=== PATIENT | female | born 1945 | race Caucasian/White ===

== ENCOUNTER 2022-10-27 11:37 | Observation (INO) | payer MEDICARE ==
--- NOTE | 2022-10-27 11:50 | ERPHSYRPT ---
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 With time, the pain radiated into her left chest and left shoulder causing achiness. She has never had anything like this before. She went to [facility], [place] who sent this patient to our department for further evaluation and management. Patient's primary care provider is nurse practitioner Avi. Patient still has her gallbladder in [place]. 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 but denies any history of cardiac myocardial infarction Timing/Duration: today Activities at Onset: none Quality: aching Location: other (Left chest) Chest Pain Radiation: arm (Left shoulder) Severity of Pain-Max: mild (To moderate) Severity of Pain-Current: mild (To moderate) Modifying Factors: Improves With: nothing Associated Symptoms: nausea, vomiting, abdominal pain (Generalized), No shortness of breath Aspirin Treatment Today: no aspirin today Allergies/Adverse Reactions: codeine Allergy (Verified 10/27/22 11:45) Home Medications: Amlodipine Besylate 5 mg [Norvasc 5 mg] 5 mg PO BID 02/08/13 [History] hydroCHLOROthiazide [Hydrochlorothiazide] 25 mg PO DAILY 02/08/13 [History] Alendronate Sodium [Fosamax] 1 tab PO WEEKLY 10/27/22 [History] Atorvastatin Calcium 1 tab PO DAILY 10/27/22 [History] Cilostazol 100 mg [Pletal 100 MG] 1 tab PO DAILY 10/27/22 [History] Hx Tetanus, Diphtheria Vaccination/Date Given: Yes Hx Influenza Vaccination/Date Given: Yes (2011) Hx Pneumococcal Vaccination/Date Given: No Travel Risk - International Travel Have you traveled outside of the country in past 3 weeks: No - Coronavirus Screening Are you exhibiting any of the following symptoms?: No Close contact with a COVID-19 positive Pt in past 14-21 Days: No - Review of Systems Constitutional: No Symptoms Eyes: No Symptoms Ears, Nose, & Throat: No Symptoms Respiratory: No Symptoms Cardiac: Chest Pain (Achiness left chest) Abdominal/Gastrointestinal: Abdominal Pain (Generalized), Nausea, Vomiting, Appetite Changes Genitourinary Symptoms: No Symptoms Musculoskeletal: No Symptoms Skin: No Symptoms Neurological: No Symptoms Psychological: No Symptoms Endocrine: No Symptoms Hematologic/Lymphatic: No Symptoms Immunological/Allergic: No Symptoms All Other Systems: Reviewed and Negative - Past Medical History Pertinent Past Medical History: Yes Neurological History: No Pertinent History ENT History: No Pertinent History Cardiac History: No Pertinent History, Hypertension Respiratory History: No Pertinent History Endocrine Medical History: No Pertinent History Musculoskeletal History: No Pertinent History GI Medical History: No Pertinent History History: No Pertinent History Psycho-Social History: No Pertinent History Female Reproductive Disorders: No Pertinent History - Past Surgical History Past Surgical History: Yes Neuro Surgical History: No Pertinent History Cardiac: No Pertinent History Respiratory: No Pertinent History Gastrointestinal: No Pertinent History Genitourinary: Other Musculoskeletal: Orthopedic Surgery Female Surgical History: Tubal Ligation Other Surgical History: Rotator cuff surger and bladder tie up - Social History Smoking Status: Current every day smoker How long have you smoked: 30 Exposure to second hand smoke: No Drug Use: none Patient Lives Alone: No - Nursing Vital Signs Nursing Vital Signs: Initial Vital Signs Temperature 97.9 F 10/27/22 11:47 Pulse Rate 73 10/27/22 11:47 Respiratory Rate 18 10/27/22 11:47 Blood Pressure 129/80 10/27/22 11:47 O2 Sat by Pulse Oximetry 97 10/27/22 11:47 Pain Scale Pain Intensity 2 - Physical Exam General Appearance: no apparent distress, alert, anxiety Eye Exam: PERRL/EOMI, eyes nml inspection Ears, Nose, Throat Exam: normal ENT inspection, moist mucous membranes Neck Exam: normal inspection, non-tender, supple, full range of motion Respiratory Exam: normal breath sounds, chest tenderness (Left anterior chest achiness), lungs clear, airway intact, No respiratory distress Cardiovascular Exam: regular rate/rhythm, normal heart sounds, normal peripheral pulses Gastrointestinal/Abdomen Exam: soft, normal bowel sounds, tenderness (Ge neralized mild), guarding (Generalized mild to palpation), No rebound Pelvic Exam: not done Rectal Exam: not done Back Exam: normal inspection, normal range of motion, No CVA tenderness, No vertebral tenderness Extremity Exam: normal inspection, normal range of motion, pelvis stable Neurologic Exam: alert, oriented x 3, cooperative, jewelry dipper II-XII nml as tested, normal mood/affect Skin Exam: normal color, warm, dry Lymphatic Exam: No adenopathy SpO2 Interpretation: normal O2 Delivery: Room Air - Course Nursing assessment & vital signs reviewed: Yes EKG Interpreted by Me: RATE (69), Sinus Rhythm, NORMAL AXIS, NORMAL INTERVALS, Right Bundle Branch Block, NORMAL ST-T, Other (No acute ischemic changes on t nesha's twelve-lead EKG.) Ordered Tests: Active Orders 24 hr Category Date Time Status EKG-ER Only STAT Care 10/27/22 12:05 Active IV Insertion STAT Care 10/27/22 12:05 Active ABDOMEN AND PELVIS W/0 CONTRAS [CT] Stat Exams 10/27/22 12:06 Completed AMYLASE Stat Lab 10/27/22 12:05 Completed CBC W DIFF Stat Lab 10/27/22 12:05 Completed CMP Stat Lab 10/27/22 12:05 Completed LIPASE Stat Lab 10/27/22 12:05 Completed TROPONIN Q4H Lab 10/27/22 12:05 Completed TROPONIN Q4H Lab 10/27/22 16:15 Ordered TROPONIN Q4H Lab 10/27/22 20:15 Ordered UA W/RFX UR CULTURE Stat Lab 10/27/22 12:09 Completed Transfer Order Routine Transfer 10/27/22 Ordered Medication Summary Generic Name Dose Route Start Last Admin Trade Name Freq PRN Reason Stop Dose Admin Sodium Chloride 1,000 mls @ 150 mls/hr 10/27/22 14:00 Sodium Chloride 0.9% 1000 Ml IV 11/26/22 13:59 .[id number] ETHEL Discontinued Medications Generic Name Dose Route Start Last Admin Trade Name Freq PRN Reason Stop Dose Admin Hydromorphone HCl 0.5 mg 10/27/22 12:14 10/27/22 12:33 Hydromorphone 1 Mg/1ml Inj IV 10/27/22 12:15 0.5 mg STAT ONE Administration Hydromorphone HCl Confirm 10/27/22 12:32 Hydromorphone 1 Mg/1ml Inj Administered 10/27/22 12:33 Dose 1 mg .ROUTE .STK-MED ONE Sodium Chloride 1,000 mls @ 999 mls/hr 10/27/22 12:05 10/27/22 13:16 Sodium Chloride 0.9% 1000 Ml IV 10/27/22 13:05 Infused .Q1H1M STA Infusion Sodium Chloride Confirm 10/27/22 12:10 Sodium Chloride 0.9% 1000 Ml Administered 10/27/22 12:11 Dose 1,000 mls @ ud .ROUTE .STK-MED ONE Metronidazole 500 mg in 100 mls @ 200 mls/hr 10/27/22 13:17 10/27/22 14:14 Flagyl 500 Mg Ivpb IV 10/27/22 13:46 200 ml/hr STAT STA 200 mls/hr Administration Metronidazole Confirm 10/27/22 14:10 Flagyl 500 Mg Ivpb Administered 10/27/22 14:11 Dose 500 mg in 100 mls @ ud IV .STK-MED ONE Ondansetron HCl 4 mg 10/27/22 12:14 10/27/22 12:33 Ondansetron Hcl 4 Mg/2 Ml Vial IV 10/27/22 12:15 4 mg STAT ONE Administration Ondansetron HCl Confirm 10/27/22 12:32 Ondansetron Hcl 4 Mg/2 Ml Vial Administered 10/27/22 12:33 Dose 4 mg .ROUTE .STK-MED ONE Lab/Rad Data: Laboratory Result Diagrams 10/27/22 12:05 10/27/22 12:05 Laboratory Results 10/27/22 10/27/22 10/27/22 Range/Units 12:09 12:05 12:05 WBC (4.0-10.5) x10^3/uL RBC (4.1-5.4) x10^6/uL Hgb (12.0-16.0) g/dL Hct (35-47) % MCV (78-100) fL MCH (26-32) pg MCHC (32-36) g/dL RDW (11.5-14.0) % Plt Count (150-450) x10^3/uL MPV (7.5-11.0) fL Gran % (36.0-66.0) % Immature Gran % (Auto) (0.00-0.4) % Nucleat RBC Rel Count (0.00-0.1) % Eos # (Auto) (0-0.5) x10^3/uL Immature Gran # (Auto) (0.00-0.03) x10^3u/L Absolute Lymphs (auto) (1.0-4.6) x10^3/uL Absolute Monos (auto) (0.0-1.3) x10^3/uL Absolute Nucleated RBC (0.00-0.01) x10^3u/L Lymphocytes % (24.0-44.0) % Monocytes % (0.0-12.0) % Eosinophils % (0.00-5.0) % Basophils % (0.0-0.4) % Absolute Granulocytes (1.4-6.9) x10^3/uL Basophils # (0-0.4) x10^3/uL Sodium 137 (137-145) mmol/L Potassium 3.4 L (3.5-5.1) mmol/L Chloride 100 (98-107) mmol/L Carbon Dioxide 30 (22-30) mmol/L Anion Gap 10.4 (5-15) MEQ/L BUN 19 H (7-17) mg/dL Creatinine 0.74 (0.52-1.04) mg/dL Estimated GFR > 60.0 ML/MIN Glucose 128 H (74-106) mg/dL Calcium 9.0 (8.4-10.2) mg/dL Total Bilirubin 0.50 (0.2-1.3) mg/dL AST 30 (14-36) U/L ALT 15 (0-35) U/L Alkaline Phosphatase 62 (38-126) U/L Troponin I < 0.012 (0.000-0.034) ng/mL Serum Total Protein 7.5 (6.3-8.2) g/dL Albumin 4.1 (3.5-5.0) g/dL Amylase 2849 H (30-110) U/L Lipase 93393 H (23-300) U/L Urine Color Dark Yellow A (Yellow) Urine Appearance Cloudy A (Clear) Urine pH 5.5 (4.6-8.0) Ur Specific [place] >=1.030 A (1.005-1.030) Urine Protein 30 (Negative) Urine Glucose (UA) Negative (Negative) mg/dL Urine Ketones Trace A (Negative) Urine Blood Negative (Negative) Urine Nitrite Negative (Negative) Urine Bilirubin Negative (Negative) Urine Urobilinogen 1.0 A (0.2) mg/dL Ur Leukocyte Esterase Trace A (Negative) U Hyaline Cast (Auto) NONE SEEN (0-2) /LPF Urine Microscopic RBC 0-2 (0-5) /HPF Urine Microscopic WBC 0-2 (0-5) /HPF Ur Epithelial Cells Few (None Seen) /HPF Urine Bacteria Few A (None Seen) /HPF Urine Culture Reflexed NO (NO) 10/27/22 Range/Units 12:05 WBC 7.9 (4.0-10.5) x10^3/uL RBC 4.71 (4.1-5.4) x10^6/uL Hgb 14.1 (12.0-16.0) g/dL Hct 43.0 (35-47) % MCV 91.3 (78-100) fL MCH 29.9 (26-32) pg MCHC 32.8 (32-36) g/dL RDW 12.5 (11.5-14.0) % Plt Count 228 (150-450) x10^3/uL MPV 9.9 (7.5-11.0) fL Gran % 78.1 H (36.0-66.0) % Immature Gran % (Auto) 0.4 (0.00-0.4) % Nucleat RBC Rel Count 0.0 (0.00-0.1) % Eos # (Auto) 0 (0-0.5) x10^3/uL Immature Gran # (Auto) 0.03 (0.00-0.03) x10^3u/L Absolute Lymphs (auto) 1.33 (1.0-4.6) x10^3/uL Absolute Monos (auto) 0.36 (0.0-1.3) x10^3/uL Absolute Nucleated RBC 0.00 (0.00-0.01) x10^3u/L Lymphocytes % 16.8 L (24.0-44.0) % Monocytes % 4.6 (0.0-12.0) % Eosinophils % 0.0 (0.00-5.0) % Basophils % 0.1 (0.0-0.4) % Absolute Granulocytes 6.17 (1.4-6.9) x10^3/uL Basophils # 0.01 (0-0.4) x10^3/uL Sodium (137-145) mmol/L Potassium (3.5-5.1) mmol/L Chloride (98-107) mmol/L Carbon Dioxide (22-30) mmol/L Anion Gap (5-15) MEQ/L BUN (7-17) mg/dL Creatinine (0.52-1.04) mg/dL Estimated GFR ML/MIN Glucose (74-106) mg/dL Calcium (8.4-10.2) mg/dL Total Bilirubin (0.2-1.3) mg/dL AST (14-36) U/L ALT (0-35) U/L Alkaline Phosphatase (38-126) U/L Troponin I (0.000-0.034) ng/mL Serum Total Protein (6.3-8.2) g/dL Albumin (3.5-5.0) g/dL Amylase (30-110) U/L Lipase (23-300) U/L Urine Color (Yellow) Urine Appearance (Clear) Urine pH (4.6-8.0) Ur Specific [place] (1.005-1.030) Urine Protein (Negative) Urine Glucose (UA) (Negative) mg/dL Urine Ketones (Negative) Urine Blood (Negative) Urine Nitrite (Negative) Urine Bilirubin (Negative) Urine Urobilinogen (0.2) mg/dL Ur Leukocyte Esterase (Negative) U Hyaline Cast (Auto) (0-2) /LPF Urine Microscopic RBC (0-5) /HPF Urine Microscopic WBC (0-5) /HPF Ur Epithelial Cells (None Seen) /HPF Urine Bacteria (None Seen) /HPF Urine Culture Reflexed (NO) - Progress Progress: improved, re-examined Air Movement: good Progress Note: 10/27/22 13:18 CAT scan of the abdomen pelvis without contrast shows new duodenal and proximal jejunal enteritis with tiny left colic gutter free fluid. There is enlarging moderate sized hiatal hernia. There is no walled off fluid collection or evidence of free air. This patient's medical issues 1 of high complexity. The level of complexity in the work-up performed based on review of the patient's past medical history, review of the patient's medication list, review of the patient's drug allergy list, history of present illness, and physical findings on examination. The work-up in this patient includes a twelve-lead EKG, troponin level, CT scan of the abdomen pelvis, CBC, CMP, amylase and urinalysis. I reviewed the results of the work-up. The patient appears to have enteritis. We will provide her with a 500 mg IV dose of Flagyl. We are awaiting the remainder of the work-up results. 10/27/22 14:33 Patient has acute pancreatitis. I spoke with Dr. Pedraza who is covering for unassigned patients. He agrees that the patient should be placed in observation into the hospital we will provide the patient with clear liquid diet, IV hydration and repeat labs in the morning. We will also provide her with antiemetic and pain control. Blood Culture(s) Obtained: Yes Antibiotics given: Yes Discussed with : James Counseled pt/family regarding: lab results, diagnosis, need for follow-up, rad results Medical Desision Making - Independent Historian Additional History obtained from: Child - Discussion of managment Agreed on:: Treatment plan, decision to admit, place in obs - Diagnostic Testing Diagnostic test were ordered, analyzed, and reviewed by me: Yes Radiological Interpretation: Reviewed by me, Teleradiologist Report - Risk of complications The pt has a high risk of morbidity or mortality based on: Decision regarding hospitilization or escalation of hosp level of care - Departure Departure Disposition: Observation Clinical Impression: Acute pancreatitis Condition: Stable Critical Care Time: No Referrals: JIMMY MAJOR, REPROGRAPHICS TECHNICIAN [Primary Care Provider] - Follow up/PCP as directed
[2022-10-27] MEDS ORDERED: Sodium Chloride 0.9% 1000 ML 1,000 ML IV STA (12:05)
[2022-10-27] MEDS ORDERED: Sodium Chloride 0.9% 1000 ML 1,000 ML ONE ×2 (12:10→15:15)
[2022-10-27] MEDS ORDERED: Hydromorphone 1 mg/ml Injection IV ONE ×2 (12:14→15:15)
[2022-10-27] MEDS ORDERED: Zofran 4 MG/2 ML VIAL IV ONE (12:14)
[2022-10-27 12:19] LABS: Absolute Neutrophil Ct (ANC) 6.17 x10^3/uL (1.4-6.9); BASOPHIL % 0.1 % (0.0-0.4); Basophil (Absolute #) 0.01 x10^3/uL (0-0.4); Eosinophil (Absolute #) 0 x10^3/uL (0-0.5); Hemoglobin 14.1 g/dL (12.0-16.0); IMMATURE GRAN # 0.03 x10^3u/L (0.00-0.03); IMMATURE GRAN % 0.4 % (0.00-0.4); Lymphocyte (Absolute #) 1.33 x10^3/uL (1.0-4.6); Lymphocytes % 16.8 % (24.0-44.0); Mean Cell Volume 91.3 fL (78-100); Mean Corpuscular Hemoglobin 29.9 pg (26-32); Mean Corpuscular Hgb Concent. 32.8 g/dL (32-36); Mean Platelet Volume 9.9 fL (7.5-11.0); Monocyte (Absolute #) 0.36 x10^3/uL (0.0-1.3); Monocytes % 4.6 % (0.0-12.0); Neutrophil % 78.1 % (36.0-66.0); Platelet Count 228 x10^3/uL (150-450); Red Blood Count 4.71 x10^6/uL (4.1-5.4); Red Cell Distribution Width 12.5 % (11.5-14.0); White Blood Count 7.9 x10^3/uL (4.0-10.5)
[2022-10-27 12:30] LABS: Appearance Cloudy (Clear); Bilirubin Negative (Negative); Blood Negative (Negative); Glucose, Urine Negative (Negative); Ketones Trace (Negative); Leukocyte Esterase Trace (Negative); Nitrite Negative (Negative); Ph 5.5 (4.6-8.0); Protein,Urine Dip 30 (Negative); Specific Gravity >=1.030 (1.005-1.030)
[2022-10-27] MEDS ORDERED: Zofran 4 MG/2 ML VIAL ONE (12:32)
[2022-10-27] MEDS ORDERED: Hydromorphone 1 mg/ml Injection ONE ×2 (12:32→15:15)
[2022-10-27 12:44] LABS: ALBUMIN 4.1 g/dL (3.5-5.0); ALKALINE PHOSPHATASE 62 U/L (38-126); ANION GAP 10.4 MEQ/L (5-15); BLOOD UREA NITROGEN 19 mg/dL (7-17); CHLORIDE 100 mmol/L (98-107); Carbon Dioxide 30 mmol/L (22-30); Creatinine 1 0.74 mg/dL (0.52-1.04); EST GLOMERULAR FILTRATION RATE > 60.0 ML/MIN; Glucose 128 mg/dL (74-106); Potassium 3.4 mmol/L (3.5-5.1); SGOT/AST 30 U/L (14-36); SGPT/ALT 15 U/L (0-35); SODIUM 137 mmol/L (137-145); Total Protein 7.5 g/dL (6.3-8.2)
--- NOTE | 2022-10-27 13:06 | XRAY ---
Indication: Abdomen pain. Nausea and vomiting. Multiple contiguous axial images obtained through the abdomen and pelvis without contrast. Comparison: December 21, 2017 Lung bases again hyperinflated with right basilar subsegmental atelectasis/scarring. No infiltrate or effusion. Heart not enlarged. Enlarging moderate size hiatal hernia. Noncontrasted stomach and bowel loops appear nonobstructed. Entire duodenum and proximal jejunum now demonstrates circumferential wall thickening with minimal stranding favoring enteritis. Tiny fluid left colic gutter presumed reactive. No walled off fluid collection or free air. Appendix not seen. Incidental small left renal cyst and tiny hepatic/splenic calcified granulomas. Remaining liver, gallbladder, pancreas, spleen, adrenal glands, kidneys, ureters, bladder, and uterus are unremarkable for noncontrast exam. Pelvic floor demonstrates new pessary ring. Worsening mild/moderate scattered aortoiliac calcifications with new 2.4 x 2.1 cm distal AAA. Osseous structures intact again with osteopenia, mild/moderate degenerative changes throughout the spine, and mild dextroscoliosis. Impression: 1. New duodenal and proximal jejunal enteritis with tiny left colic gutter free fluid. 2. Enlarging moderate-sized hiatal hernia. 3. 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 4. Again chronic findings including left renal cyst, chronic bony findings, and old granulomatous disease.
[2022-10-27 13:11] LABS: Bacteria Few /HPF (None Seen); Epithelial Cells Few /HPF (None Seen); Hyaline Casts NONE SEEN /LPF (0-2); RBC 0-2 /HPF (0-5); WBC 0-2 /HPF (0-5)
[2022-10-27 13:12] LABS: ADD URINE CULTURE? NO (NO)
[2022-10-27] MEDS ORDERED: FLAGYL 500 MG IVPB 500 MG/100 ML BAG IV STA (13:17)
[2022-10-27 13:39] LABS: AMYLASE 2849 U/L (30-110)
[2022-10-27 13:48] LABS: LIPASE 19909 U/L (23-300)
[2022-10-27] MEDS ORDERED: Sodium Chloride 0.9% 1000 ML 1,000 ML IV SCH (14:00)
[2022-10-27] MEDS ORDERED: FLAGYL 500 MG IVPB 500 MG/100 ML BAG IV ONE (14:10)
[2022-10-27] MEDS ORDERED: Hydromorphone 1 mg/ml Injection IV PRN (15:54)
[2022-10-27] MEDS ORDERED: Zofran 4 MG/2 ML VIAL IV PRN (15:54)
[2022-10-27] MEDS ORDERED: TYLENOL 325 MG PO PRN (15:54)
[2022-10-27] MEDS ORDERED: HYDROMORPHONE 30 MG/30 ML-NS PCA IV PRN (16:54)
[2022-10-27] MEDS: FLAGYL 500 MG IVPB 500 MG/100 ML BAG IV SCH ×2 (18:02→23:48)
[2022-10-27] MEDS: hydroDIURIL 25 MG PO SCH (18:02)
[2022-10-27] MEDS: Pletal 100 MG PO SCH (18:03)
[2022-10-27] MEDS: ZOCOR 20MG PO SCH (18:03)
[2022-10-27] MEDS: Klor Con PO SCH (18:03)
[2022-10-27] MEDS: NORVASC 5 MG PO SCH (22:13)
[2022-10-28] MEDS: Sodium Chloride 0.9% 1000 ML 1,000 ML IV SCH (00:47)
[2022-10-28 04:46] LABS: Absolute Neutrophil Ct (ANC) 7.07 x10^3/uL (1.4-6.9); BASOPHIL % 0.2 % (0.0-0.4); Basophil (Absolute #) 0.02 x10^3/uL (0-0.4); Eosinophil % 0.2 % (0.00-5.0); Eosinophil (Absolute #) 0.02 x10^3/uL (0-0.5); Hematocrit 37.7 % (35-47); Hemoglobin 12.3 g/dL (12.0-16.0); IMMATURE GRAN # 0.03 x10^3u/L (0.00-0.03); IMMATURE GRAN % 0.3 % (0.00-0.4); Lymphocyte (Absolute #) 1.76 x10^3/uL (1.0-4.6); Lymphocytes % 18.5 % (24.0-44.0); Mean Corpuscular Hgb Concent. 32.6 g/dL (32-36); Mean Platelet Volume 9.3 fL (7.5-11.0); Monocyte (Absolute #) 0.61 x10^3/uL (0.0-1.3); Monocytes % 6.4 % (0.0-12.0); Neutrophil % 74.4 % (36.0-66.0); Platelet Count 173 x10^3/uL (150-450); Red Cell Distribution Width 12.8 % (11.5-14.0); White Blood Count 9.5 x10^3/uL (4.0-10.5)
[2022-10-28 05:15] LABS: AMYLASE 994 U/L (30-110)
[2022-10-28 05:25] LABS: ALBUMIN 3.1 g/dL (3.5-5.0); ALKALINE PHOSPHATASE 44 U/L (38-126); ANION GAP 7.8 MEQ/L (5-15); BLOOD UREA NITROGEN 10 mg/dL (7-17); CHLORIDE 100 mmol/L (98-107); Calcium 7.6 mg/dL (8.4-10.2); Carbon Dioxide 29 mmol/L (22-30); Creatinine 1 0.62 mg/dL (0.52-1.04); EST GLOMERULAR FILTRATION RATE > 60.0 ML/MIN; Glucose 107 mg/dL (74-106); NT PRO BNPII 2130 pg/mL (<300); SGOT/AST 25 U/L (14-36); SGPT/ALT 14 U/L (0-35); SODIUM 134 mmol/L (137-145)
[2022-10-28 05:28] LABS: Potassium 2.9 mmol/L (3.5-5.1)
[2022-10-28 05:29] LABS: LIPASE 3845 U/L (23-300)
[2022-10-28] MEDS: FLAGYL 500 MG IVPB 500 MG/100 ML BAG IV SCH ×3 (06:15→18:44)
[2022-10-28] MEDS ORDERED: K-LYTE PO SCH (06:30)
[2022-10-28] MEDS ORDERED: Klor Con PO SCH (07:00)
[2022-10-28] MEDS ORDERED: POTASSIUM CHLORIDE 20 mEq IN WATER 100ML 100 ML IV SCH (07:00)
[2022-10-28] MEDS ORDERED: MAGNESIUM SULF 2 G/50 ML BAG 2 GM/50 ML PIGGYBACK IV ONE (07:00)
[2022-10-28] MEDS: Pletal 100 MG PO SCH ×2 (07:31→16:26)
[2022-10-28] MEDS: POTASSIUM CHLORIDE 20 mEq IN WATER 100ML 100 ML IV SCH ×2 (08:16→10:43)
[2022-10-28] MEDS: Klor Con PO SCH ×5 (08:17→14:32)
[2022-10-28] MEDS ORDERED: NON-FORMULARY ITEM (Atorvastatin Calcium [Atorvastatin Calcium] 80 MG Tablet) PO SCH (10:00)
[2022-10-28] MEDS ORDERED: NON-FORMULARY ITEM (Potassium Chloride [Potassium Chloride] 10 MEQ Tablet.Er) PO SCH (10:00)
[2022-10-28] MEDS: Sodium Chloride 0.9% W/ 20 mEq KCl/LITER 1,000 ML IV SCH ×2 (10:41→21:05)
[2022-10-28] MEDS: ZOCOR 20MG PO SCH (10:43)
[2022-10-28] MEDS: hydroDIURIL 25 MG PO SCH (10:44)
[2022-10-28] MEDS: NORVASC 5 MG PO SCH ×2 (10:44→23:16)
--- NOTE | 2022-10-28 11:01 | XRAY ---
Indication: Abdomen pain. Two-dimensional gallbladder sonogram performed. Comparison: None Visualized gallbladder normally distended without gallstones, wall thickening, or pericholecystic fluid. Common bile duct measures 5.2 mm. No intrahepatic biliary distention. Remaining visualized liver, pancreas, and right kidney are sonographically unremarkable. Right kidney measures 10.2 cm in length. No free fluid. Impression: Negative gallbladder sonogram.
[2022-10-29] MEDS: FLAGYL 500 MG IVPB 500 MG/100 ML BAG IV SCH ×4 (00:11→17:13)
[2022-10-29] MEDS: Sodium Chloride 0.9% W/ 20 mEq KCl/LITER 1,000 ML IV SCH ×3 (04:18→11:32)
[2022-10-29 05:49] LABS: Hemoglobin 11.1 g/dL (12.0-16.0); Mean Cell Volume 92.6 fL (78-100); Mean Corpuscular Hemoglobin 30.2 pg (26-32); Mean Corpuscular Hgb Concent. 32.6 g/dL (32-36); Mean Platelet Volume 9.6 fL (7.5-11.0); Platelet Count 156 x10^3/uL (150-450); Red Blood Count 3.67 x10^6/uL (4.1-5.4); Red Cell Distribution Width 12.7 % (11.5-14.0); White Blood Count 11.8 x10^3/uL (4.0-10.5)
[2022-10-29 06:31] LABS: ALBUMIN 2.8 g/dL (3.5-5.0); ALKALINE PHOSPHATASE 46 U/L (38-126); AMYLASE 261 U/L (30-110); ANION GAP 8.9 MEQ/L (5-15); BLOOD UREA NITROGEN 7 mg/dL (7-17); CHLORIDE 105 mmol/L (98-107); Calcium 7.4 mg/dL (8.4-10.2); Carbon Dioxide 24 mmol/L (22-30); Creatinine 1 0.56 mg/dL (0.52-1.04); EST GLOMERULAR FILTRATION RATE > 60.0 ML/MIN; Glucose 101 mg/dL (74-106); LIPASE 212 U/L (23-300); Potassium 3.8 mmol/L (3.5-5.1); SGOT/AST 24 U/L (14-36); SGPT/ALT 12 U/L (0-35); SODIUM 134 mmol/L (137-145); Total Protein 5.6 g/dL (6.3-8.2)
[2022-10-29] MEDS: Sodium Chloride 0.9% 1000 ML 1,000 ML IV SCH ×3 (07:36→16:22)
[2022-10-29] MEDS: Pletal 100 MG PO SCH ×2 (07:42→16:23)
[2022-10-29] MEDS: ZOCOR 20MG PO SCH (09:46)
[2022-10-29] MEDS: NORVASC 5 MG PO SCH ×2 (09:46→22:58)
[2022-10-29] MEDS: hydroDIURIL 25 MG PO SCH (09:46)
[2022-10-29] MEDS: Klor Con PO SCH (09:47)
[2022-10-29] MEDS ORDERED: Tums EX 750 MG PO PRN (11:26)
[2022-10-29] MEDS ORDERED: Tums EX 750 MG ONE (11:28)
[2022-10-29] MEDS: PROTONIX 40 MG IV IV SCH (12:32)
--- NOTE | 2022-10-29 12:59 | PCM.NOTE ---
Date and Time: 10/29/22 1257 Subjective Assessment: Patient in with Acute pancreatitis ,negative GBUS but repeat CT abd today shows "overdistended GB" with ileus and some pulmonary edema,diverticulosis but no diverticulitis. . Patient denies ETOH abuse Hx. Amylase and lipase coming down. WBC up from admit now 11,000 and elevated Procalcitonin. Is on IV Flagyl. States no appetite has nausea but no vomiting and abdomen is feeling bloated,pressure type pain left mid and lower abdomen. Objective Exam General Appearance: mild distress (abdomen uncomfortable and is nauseatd) Neurologic Exam: alert, cooperative Skin Exam: normal color, warm, dry Ears, Nose, Throat Exam: normal ENT inspection Neck Exam: normal inspection Respiratory Exam: normal breath sounds Cardiovascular Exam: tachycardia (rate 90,regular) Gastrointestinal/Abdomen Exam: tenderness (lef mid and lower abd), distention Extremity Exam: normal inspection Back Exam: normal inspection OBJECTIVE DATA Vital Signs: Vital Signs - 24 hr Temp Pulse Resp BP Pulse Ox 10/29/22 11:39 98.4 F 95 H 16 106/56 95 10/29/22 07:17 98.7 F 91 H 16 113/56 92 L 10/29/22 04:00 97.9 F 75 16 83/49 96 10/28/22 23:58 98.1 F 99 H 16 96/51 92 L 10/28/22 22:00 16 93 L 10/28/22 20:00 98.9 F 102 H 19 111/58 94 L 10/28/22 19:28 16 93 L 10/28/22 16:00 97.7 F 92 H 16 100/53 99 10/28/22 14:48 18 95 Pain Assessment - Last Documented Pain Intensity 0 Pain Scale Used 0-10 Pain Scale Intake and Output: Intake & Output 10/27/22 10/28/22 10/29/22 10/30/22 11:59 11:59 11:59 11:59 Intake Total 5287 6252 Balance 3269 4857 Weight 59.874 kg 60.4 kg 60.4 kg Lab Results: Lab Results-Last 24 Hours 10/28/22 10/29/22 10/29/22 Range/Units 16:47 05:42 05:42 WBC 11.8 H (4.0-10.5) x10^3/uL RBC 3.67 L (4.1-5.4) x10^6/uL Hgb 11.1 L (12.0-16.0) g/dL Hct 34.0 L (35-47) % MCV 92.6 (78-100) fL MCH 30.2 (26-32) pg MCHC 32.6 (32-36) g/dL RDW 12.7 (11.5-14.0) % Plt Count 156 (150-450) x10^3/uL MPV 9.6 (7.5-11.0) fL Sodium (137-145) mmol/L Potassium 4.0 (3.5-5.1) mmol/L Chloride (98-107) mmol/L Carbon Dioxide (22-30) mmol/L Anion Gap (5-15) MEQ/L BUN (7-17) mg/dL Creatinine (0.52-1.04) mg/dL Estimated GFR ML/MIN Glucose (74-106) mg/dL Calcium (8.4-10.2) mg/dL Magnesium 2.0 (1.6-2.3) mg/dL Total Bilirubin (0.2-1.3) mg/dL AST (14-36) U/L ALT (0-35) U/L Alkaline Phosphatase (38-126) U/L Serum Total Protein (6.3-8.2) g/dL Albumin (3.5-5.0) g/dL Amylase (30-110) U/L Lipase (23-300) U/L 05// Range/Units 05:42 WBC (4.0-10.5) x10^3/uL RBC (4.1-5.4) x10^6/uL Hgb (12.0-16.0) g/dL Hct (35-47) % MCV (78-100) fL MCH (26-32) pg MCHC (32-36) g/dL RDW (11.5-14.0) % Plt Count (150-450) x10^3/uL MPV (7.5-11.0) fL Sodium 134 L (137-145) mmol/L Potassium 3.8 (3.5-5.1) mmol/L Chloride 105 (98-107) mmol/L Carbon Dioxide 24 (22-30) mmol/L Anion Gap 8.9 (5-15) MEQ/L BUN 7 (7-17) mg/dL Creatinine 0.56 (0.52-1.04) mg/dL Estimated GFR > 60.0 ML/MIN Glucose 101 (74-106) mg/dL Calcium 7.4 L (8.4-10.2) mg/dL Magnesium (1.6-2.3) mg/dL Total Bilirubin 0.60 (0.2-1.3) mg/dL AST 24 (14-36) U/L ALT 12 (0-35) U/L Alkaline Phosphatase 46 (38-126) U/L Serum Total Protein 5.6 L (6.3-8.2) g/dL Albumin 2.8 L (3.5-5.0) g/dL Amylase 261 H (30-110) U/L Lipase 212 (23-300) U/L Radiology Exams: Radiology Procedures Category Date Time Status ABDOMEN AND PELVIS W/0 CONTRAS [CT] Stat Exams 10/27/22 12:06 Completed GALLBLADDER [US] Urgent Exams 10/28/22 08:29 Completed Assessment/Plan (1) Acute pancreatitis Current Visit: Yes Status: Acute Qualifiers: Pancreatitis type: unspecified pancreatitis type Assessment & Plan: improved Code(s): K85.90 - ACUTE PANCREATITIS WITHOUT NECROSIS OR INFECTION, UNSP (2) Ileus, unspecified Current Visit: Yes Status: Acute Code(s): K56.7 - ILEUS, UNSPECIFIED (3) Pulmonary edema Current Visit: Yes Status: Acute Assessment & Plan: IV fluids reduced from 150 to 75 Code(s): J81.1 - CHRONIC PULMONARY EDEMA (4) Elevated procalcitonin Current Visit: Yes Status: Acute Assessment & Plan: add Rocephin,continue Flagyl. Code(s): R79.89 - OTHER SPECIFIED ABNORMAL FINDINGS OF BLOOD CHEMISTRY
--- NOTE | 2022-10-29 16:04 | XRAY ---
CLINICAL HISTORY:N/V abd distention LLQ pain WBC courtney COMPARISON:None; TECHNIQUES:Multiplanar non contrast CT abdomen and pelvis performed. FINDINGS: Interval development of mild bilateral pulmonary edema and mild bibasal pleural effusion with underlying atelectasis. Heart size is normal, no pericardial effusion was noted. Still seen moderate sized hiatus hernia. Distal small bowel loops are dilated with air-fluid levels maximum diameter 4 cm, Ascending, transverse colon are dilated while gradual transition at distal large bowel loops, no absolute zone of transition seen, these are interval new findings. Findings are suggestive of ileus / [place] syndrome. Multiple colonic diverticuli seen, at sigmoid and descending colon region there is mild surrounding fat smudginess without evidence of diverticulitis. Mild pelvis ascites noted. Stomach appears unremarkable. No pneumoperitoneum seen. Gall bladder appears overdistended with no intraluminal stone noted. Calcific densities noted in liver and spleen representing calcified granulomas. Both kidneys appear normal in size, shows normal contour and attenuation. No calculus, mass or hydronephrosis in either kidneys. Rest of the abdominal viscera appear unremarkable within the limitations of the unenhanced study. Atherosclerotic calcifications of the abdominal aorta and iliac vessels. No enlarged pelviabdominal lymph nodes. Mild body wall edema. IMPRESSION: Limited organ parenchymal evaluation within the limitations of non-contrast study. Interval new finding is distal small bowel and large bowel ileus as described. Findings are suggestive of ileus / [place] syndrome. Follow-up is advised. Mild body wall edema, mild pelvic ascites, mild bilateral pleural effusion and atelectasis, interval new findings. Colonic diverticulosis without diverticulitis. ED Department was called at [phone] at 02:47 PM PEDIATRIC REGISTERED NURSE, 10/29/[address] Wood was informed about the Significant medical findings. Electronically Signed by: Ly Dia MD. ( 10/29/2022 15:00:10 PEDIATRIC REGISTERED NURSE)
[2022-10-29 16:29] LABS: Absolute Neutrophil Ct (ANC) 9.33 x10^3/uL (1.4-6.9); BASOPHIL % 0.2 % (0.0-0.4); Basophil (Absolute #) 0.02 x10^3/uL (0-0.4); Eosinophil % 0.6 % (0.00-5.0); Eosinophil (Absolute #) 0.07 x10^3/uL (0-0.5); Hematocrit 35.9 % (35-47); Hemoglobin 11.5 g/dL (12.0-16.0); IMMATURE GRAN # 0.05 x10^3u/L (0.00-0.03); IMMATURE GRAN % 0.4 % (0.00-0.4); Lymphocyte (Absolute #) 1.73 x10^3/uL (1.0-4.6); Lymphocytes % 14.4 % (24.0-44.0); Mean Cell Volume 94.5 fL (78-100); Mean Corpuscular Hemoglobin 30.3 pg (26-32); Mean Platelet Volume 9.7 fL (7.5-11.0); Monocyte (Absolute #) 0.78 x10^3/uL (0.0-1.3); Monocytes % 6.5 % (0.0-12.0); Neutrophil % 77.9 % (36.0-66.0); Platelet Count 157 x10^3/uL (150-450); Red Cell Distribution Width 12.8 % (11.5-14.0)
[2022-10-29 16:43] LABS: ALBUMIN 2.7 g/dL (3.5-5.0); ALKALINE PHOSPHATASE 44 U/L (38-126); ANION GAP 8.7 MEQ/L (5-15); BLOOD UREA NITROGEN 5 mg/dL (7-17); CHLORIDE 103 mmol/L (98-107); Calcium 7.5 mg/dL (8.4-10.2); Carbon Dioxide 25 mmol/L (22-30); Creatinine 1 0.54 mg/dL (0.52-1.04); EST GLOMERULAR FILTRATION RATE > 60.0 ML/MIN; Glucose 95 mg/dL (74-106); Potassium 3.8 mmol/L (3.5-5.1); SGOT/AST 23 U/L (14-36); SGPT/ALT 12 U/L (0-35); SODIUM 133 mmol/L (137-145); Total Protein 5.5 g/dL (6.3-8.2)
[2022-10-29] MEDS ORDERED: ROCEPHIN 1 Gm-D5w 50 ml Bag** 1 G/50 ML IVPB IV SCH (23:00)
[2022-10-30] MEDS: Sodium Chloride 0.9% W/ 20 mEq KCl/LITER 1,000 ML IV SCH ×2 (00:01→10:43)
[2022-10-30] MEDS: FLAGYL 500 MG IVPB 500 MG/100 ML BAG IV SCH ×3 (00:04→11:31)
[2022-10-30 05:48] LABS: Absolute Neutrophil Ct (ANC) 9.27 x10^3/uL (1.4-6.9); BASOPHIL % 0.2 % (0.0-0.4); Basophil (Absolute #) 0.02 x10^3/uL (0-0.4); Eosinophil % 0.9 % (0.00-5.0); Eosinophil (Absolute #) 0.11 x10^3/uL (0-0.5); Hematocrit 35.3 % (35-47); Hemoglobin 11.5 g/dL (12.0-16.0); IMMATURE GRAN # 0.05 x10^3u/L (0.00-0.03); IMMATURE GRAN % 0.4 % (0.00-0.4); Lymphocyte (Absolute #) 1.52 x10^3/uL (1.0-4.6); Lymphocytes % 12.9 % (24.0-44.0); Mean Cell Volume 93.9 fL (78-100); Mean Corpuscular Hemoglobin 30.6 pg (26-32); Mean Corpuscular Hgb Concent. 32.6 g/dL (32-36); Mean Platelet Volume 9.9 fL (7.5-11.0); Monocytes % 6.8 % (0.0-12.0); Neutrophil % 78.8 % (36.0-66.0); Platelet Count 153 x10^3/uL (150-450); Red Blood Count 3.76 x10^6/uL (4.1-5.4); Red Cell Distribution Width 12.8 % (11.5-14.0); White Blood Count 11.8 x10^3/uL (4.0-10.5)
[2022-10-30 06:18] LABS: ALBUMIN 2.5 g/dL (3.5-5.0); ALKALINE PHOSPHATASE 48 U/L (38-126); AMYLASE 72 U/L (30-110); ANION GAP 10.6 MEQ/L (5-15); BLOOD UREA NITROGEN 5 mg/dL (7-17); CHLORIDE 103 mmol/L (98-107); Calcium 7.7 mg/dL (8.4-10.2); Carbon Dioxide 25 mmol/L (22-30); Creatinine 1 0.53 mg/dL (0.52-1.04); EST GLOMERULAR FILTRATION RATE > 60.0 ML/MIN; Glucose 75 mg/dL (74-106); LIPASE 37 U/L (23-300); Potassium 3.9 mmol/L (3.5-5.1); SGOT/AST 21 U/L (14-36); SGPT/ALT 11 U/L (0-35); SODIUM 134 mmol/L (137-145)
[2022-10-30] MEDS: hydroDIURIL 25 MG PO SCH (08:50)
[2022-10-30] MEDS: Klor Con PO SCH (08:51)
[2022-10-30] MEDS: Pletal 100 MG PO SCH (08:51)
[2022-10-30] MEDS: ZOCOR 20MG PO SCH (08:51)
[2022-10-30] MEDS: NORVASC 5 MG PO SCH (08:51)
[2022-10-30] MEDS: PROTONIX 40 MG IV IV SCH (11:30)
[2022-10-30 11:32] VITALS: BP 108/59; PULSE 94
[2022-10-30] MEDS ORDERED: ROCEPHIN 1 Gm-D5w 50 ml Bag** 1 G/50 ML IVPB IV SCH ×2 (14:16→22:00)
--- NOTE | 2022-10-30 14:24 | PCM.DCORD ---
- Discharge Disposition: Home, Self-Care Condition: Stable Prescriptions: New Ciprofloxacin [Cipro 500 MG] 500 mg PO BID #14 tablet Continue Amlodipine Besylate 5 mg [Norvasc 5 mg] 5 mg PO BID hydroCHLOROthiazide [Hydrochlorothiazide] 25 mg PO DAILY Alendronate Sodium [Fosamax] 1 tab PO WEEKLY Cilostazol 100 mg [Pletal 100 MG] 1 tab PO BID Atorvastatin Calcium 1 tab PO DAILY Potassium Chloride 10 meq PO DAILY Additional Instructions: Diet restriction to soft bland diet-no meat 1st 24 hours,follow up with PCP Follow up with: JIMMY MAJOR NP [Primary Care Provider] -
--- NOTE | 2022-10-30 14:31 | PCM.DS ---
Discharge Summary Date of Admission: 10/27/22 15:48 Date of Discharge: 10/30/22 Admitting Physician: BALTAZAR BOWEN Consults: Consults on Case 10/30/22 08:48 Consult Surgery ROUTINE Primary Care Provider: JIMMY MAJOR Allergies Allergies codeine Allergy (Verified 10/27/22 11:45) Hospital Summary - Hospital Course Hospital Course: Patient is a 77 yr old female who presented to ER with chest discomfort and work up revealed acute pancreatiotis. Patient had a normal GBUS but overly distended GB on CT but no stones. Patient denies ETOH abuse ,maybe 2 cocktails a month. - Vitals & Intake/Output Vital Signs: Vital Signs Temperature 98.2 F 10/30/22 11:31 Pulse Rate 94 H 10/30/22 11:31 Respiratory Rate 16 10/30/22 11:31 Blood Pressure 108/59 10/30/22 11:31 O2 Sat by Pulse Oximetry 93 L 10/30/22 11:31 Intake & Output: Intake & Output 10/28/22 10/29/22 10/30/22 10/31/22 11:59 11:59 11:59 11:59 Intake Total 3269 6370 3074 380 Balance 3262 4870 3074 380 Weight 60.4 kg 60.4 kg 60.6 kg - Lab Result Diagrams: 10/30/22 05:30 10/30/22 05:30 Lab Results-Last 24 Hrs: Lab Results-Last 24 Hours 10/29/22 10/29/22 10/29/22 Range/Units 15:25 15:25 15:25 WBC 12.0 H (4.0-10.5) x10^3/uL RBC 3.80 L (4.1-5.4) x10^6/uL Hgb 11.5 L (12.0-16.0) g/dL Hct 35.9 (35-47) % MCV 94.5 (78-100) fL MCH 30.3 (26-32) pg MCHC 32.0 (32-36) g/dL RDW 12.8 (11.5-14.0) % Plt Count 157 (150-450) x10^3/uL MPV 9.7 (7.5-11.0) fL Gran % 77.9 H (36.0-66.0) % Immature Gran % (Auto) 0.4 (0.00-0.4) % Nucleat RBC Rel Count 0.0 (0.00-0.1) % Eos # (Auto) 0.07 (0-0.5) x10^3/uL Immature Gran # (Auto) 0.05 H (0.00-0.03) x10^3u/L Absolute Lymphs (auto) 1.73 (1.0-4.6) x10^3/uL Absolute Monos (auto) 0.78 (0.0-1.3) x10^3/uL Absolute Nucleated RBC 0.00 (0.00-0.01) x10^3u/L Lymphocytes % 14.4 L (24.0-44.0) % Monocytes % 6.5 (0.0-12.0) % Eosinophils % 0.6 (0.00-5.0) % Basophils % 0.2 (0.0-0.4) % Absolute Granulocytes 9.33 H (1.4-6.9) x10^3/uL Basophils # 0.02 (0-0.4) x10^3/uL Sodium 133 L (137-145) mmol/L Potassium 3.8 (3.5-5.1) mmol/L Chloride 103 (98-107) mmol/L Carbon Dioxide 25 (22-30) mmol/L Anion Gap 8.7 (5-15) MEQ/L BUN 5 L (7-17) mg/dL Creatinine 0.54 (0.52-1.04) mg/dL Estimated GFR > 60.0 ML/MIN Glucose 95 (74-106) mg/dL Calcium 7.5 L (8.4-10.2) mg/dL Total Bilirubin 0.50 (0.2-1.3) mg/dL AST 23 (14-36) U/L ALT 12 (0-35) U/L Alkaline Phosphatase 44 (38-126) U/L Serum Total Protein 5.5 L (6.3-8.2) g/dL Albumin 2.7 L (3.5-5.0) g/dL Amylase (30-110) U/L Lipase (23-300) U/L Procalcitonin 0.100 H (0.030-0.080) ng/mL 10/30/22 10/30/22 Range/Units 05:30 05:30 WBC 11.8 H (4.0-10.5) x10^3/uL RBC 3.76 L (4.1-5.4) x10^6/uL Hgb 11.5 L (12.0-16.0) g/dL Hct 35.3 (35-47) % MCV 93.9 (78-100) fL MCH 30.6 (26-32) pg MCHC 32.6 (32-36) g/dL RDW 12.8 (11.5-14.0) % Plt Count 153 (150-450) x10^3/uL MPV 9.9 (7.5-11.0) fL Gran % 78.8 H (36.0-66.0) % Immature Gran % (Auto) 0.4 (0.00-0.4) % Nucleat RBC Rel Count 0.0 (0.00-0.1) % Eos # (Auto) 0.11 (0-0.5) x10^3/uL Immature Gran # (Auto) 0.05 H (0.00-0.03) x10^3u/L Absolute Lymphs (auto) 1.52 (1.0-4.6) x10^3/uL Absolute Monos (auto) 0.80 (0.0-1.3) x10^3/uL Absolute Nucleated RBC 0.00 (0.00-0.01) x10^3u/L Lymphocytes % 12.9 L (24.0-44.0) % Monocytes % 6.8 (0.0-12.0) % Eosinophils % 0.9 (0.00-5.0) % Basophils % 0.2 (0.0-0.4) % Absolute Granulocytes 9.27 H (1.4-6.9) x10^3/uL Basophils # 0.02 (0-0.4) x10^3/uL Sodium 134 L (137-145) mmol/L Potassium 3.9 (3.5-5.1) mmol/L Chloride 103 (98-107) mmol/L Carbon Dioxide 25 (22-30) mmol/L Anion Gap 10.6 (5-15) MEQ/L BUN 5 L (7-17) mg/dL Creatinine 0.53 (0.52-1.04) mg/dL Estimated GFR > 60.0 ML/MIN Glucose 75 (74-106) mg/dL Calcium 7.7 L (8.4-10.2) mg/dL Total Bilirubin 0.50 (0.2-1.3) mg/dL AST 21 (14-36) U/L ALT 11 (0-35) U/L Alkaline Phosphatase 48 (38-126) U/L Serum Total Protein 5.0 L (6.3-8.2) g/dL Albumin 2.5 L (3.5-5.0) g/dL Amylase 72 (30-110) U/L Lipase 37 (23-300) U/L Procalcitonin (0.030-0.080) ng/mL - Radiology Exams Ordered Rad Exams-Entire Visit: Radiology Procedures Category Date Time Status ABDOMEN AND PELVIS W/0 CONTRAS [CT] Stat Exams 10/29/22 14:15 Completed Final Diagnosis/Problem List - Final Discharge Diagnosis/Problem (1) Acute pancreatitis Current Visit: Yes Status: Resolved Code(s): K85.90 - ACUTE PANCREATITIS WITHOUT NECROSIS OR INFECTION, UNSP (2) Ileus, unspecified Current Visit: Yes Status: Resolved Code(s): K56.7 - ILEUS, UNSPECIFIED (3) Pulmonary edema Current Visit: Yes Status: Resolved Code(s): J81.1 - CHRONIC PULMONARY EDEMA (4) Elevated procalcitonin Current Visit: Yes Status: Acute Code(s): R79.89 - OTHER SPECIFIED ABNORMAL FINDINGS OF BLOOD CHEMISTRY - Discharge Disposition: Home, Self-Care Condition: Stable Prescriptions: New Ciprofloxacin [Cipro 500 MG] 500 mg PO BID #14 tablet Continue Amlodipine Besylate 5 mg [Norvasc 5 mg] 5 mg PO BID hydroCHLOROthiazide [Hydrochlorothiazide] 25 mg PO DAILY Alendronate Sodium [Fosamax] 1 tab PO WEEKLY Cilostazol 100 mg [Pletal 100 MG] 1 tab PO BID Atorvastatin Calcium 1 tab PO DAILY Potassium Chloride 10 meq PO DAILY Additional Instructions: Diet restriction to soft bland diet-no meat 1st 24 hours,follow up with PCP Follow up with: JIMMY MAJOR NP [Primary Care Provider] -
[2022-10-30] MEDS ORDERED: Rocephin 1000 MG INJ IM ONE (14:43)
[2022-10-30] MEDS ORDERED: XYLOCAINE 1% HCL 20 ML MDV IJ ONE (15:15)
[2022-10-30 15:39] VITALS: O2SAT 93
[2022-11-01] MEDS ORDERED: Fosamax 70 MG PO SCH (06:00)
--- NOTE | 2022-11-01 13:24 | CONS ---
CONSULT DATE: 10/30/2022 HISTORY: This 77-year-old has some hypertension, hyperlipidemia and osteoporosis. She had some aches and abdominal pains a few days ago. She is better now. She had elevated pancreatic enzymes at that time. She had pancreatitis. She felt a little better. She is passing flatus. She is not having any pain right now. CT yesterday showed question of ileus. They asked for surgical consult for question of ileus. She had a gallbladder ultrasound that did not show any gallstones. PAST MEDICAL HISTORY: Hypertension. Hyperlipidemia. PAST SURGICAL HISTORY: Orthopedic surgery. Tubal ligation. HOME MEDICATIONS: Amlodipine, hydrochlorothiazide, alendronate, atorvastatin (hyperlipidemia), cilostazol. ALLERGIES: CODEINE. FAMILY HISTORY: Negative in regards to this specific problem. SOCIAL HISTORY: Smoker. No alcohol abuse. REVIEW OF SYSTEMS: Fourteen systems reviewed. She is having recurrent abdominal pains. She is asking to resume her diet. She is passing flatus. She is not behaving like an obstruction. No chest pain or palpitations other systems negative or noncontributory as above and per preadmission questionnaire. LAB DATA AND TESTS: Pancreatic enzymes are down to normal. Amylase 72, lipase 37. Liver function test normal. White count 11, hemoglobin 11.5. She had some gas and some fluid seen in small bowel. The radiologist is read is diverticulosis without diverticulitis. CT films were noted and reviewed. PHYSICAL EXAMINATION: GENERAL: No acute distress. HEENT: Sclera nonicteric. EOMI. Oral mucous membranes moist. NECK: No JVD. CHEST: Equal excursion, nonlabored breathing. CVS: Regular rate and rhythm. ABDOMEN: Soft, nontender on my exam. No peritoneal signs. EXTREMITIES: No significant edema. NEURO: Alert, moving extremities grossly symmetrically. PSYCH: Appropriate mood and affect. SKIN: Dry. IMPRESSION: She had some gas in the small and large bowel and little bit of fluid. No free air. Seems more consistent with ileus. It may be related to when she had her pancreatitis. Differential could include gastroenteritis, enterocolitis. Either way, she is feeling better and she is passing flatus. She in no way seems to have any obstruction at this point. She is asking to advance her diet. Get her on clear liquids and then advance her diet as tolerated. Again, no acute surgical intervention necessary. She appears to have more of an ileus rather than obstructive issue. I do not feel she needs any acute surgical intervention, continue medical management. Per family practice when she is to advance her diet. Continue medical management of osteoporosis, hyperlipidemia and hypertension. The gallbladder does not appear to be the source of pancreatitis. She does not appear to have any gallstones at this point. She does not appear to need to have any intervention done at this time.
== END 2022-10-30 15:30 | disposition home or self-care (01) ==
LOC: ED 11:37 → MED SURG 15:48
PROVIDERS: ADMIT Family Medicine; ATTEND Family Medicine
DX: K85.90 Acute pancreatitis without necrosis or infection, unspecified (principal); K56.7 Ileus, unspecified; J81.1 Chronic pulmonary edema; R79.89 Other specified abnormal findings of blood chemistry; I10 Essential (primary) hypertension; E78.5 Hyperlipidemia, unspecified; D72.829 Elevated white blood cell count, unspecified; Z20.828 Contact with and (suspected) exposure to other viral communicable diseases; Z72.0 Tobacco use; Z79.899 Other long term (current) drug therapy
CPT/HCPCS: 36000; 36415; 74176; 76705; 80053; 81001; 82150; 83690; 83735; 83880; 84132; 84145; 84484; 85025; 85027; 93005; 93268; 94762; 96360; 96365; 96374; 96375; 96376; 99285; G0378; J0696; J1170; J2405; J3480; A9270-GY; J3475

== ENCOUNTER 2025-04-15 06:15 | Day surgery (SDC) | payer MEDICARE ==
[2025-04-15] MEDS ORDERED: CEFAZOLIN SODIUM ONE (06:48)
[2025-04-15] MEDS: TYLENOL EXTRA STRENGTH 500 MG PO ONE (06:49)
[2025-04-15] MEDS: Decadron 4 MG PO ONE (06:50)
[2025-04-15] MEDS: NEURONTIN PO ONE (06:50)
[2025-04-15 07:17] LABS: Hematocrit 40.1 % (34.1-44.9); Hemoglobin 13.1 g/dL (11.2-15.7); Mean Corpuscular Hemoglobin 29.4 pg (25.6-32.2); Mean Corpuscular Hgb Concent. 32.7 g/dL (32.2-35.5); Platelet Count 206 x10^3/uL (182-369); Red Blood Count 4.46 x10^6/uL (3.93-5.22); White Blood Count 5.9 x10^3/uL (3.98-10.04)
[2025-04-15 07:21] VITALS: RESP 18
[2025-04-15] MEDS ORDERED: Marcaine Mpf 0.5% Vial 30 Ml ONE (07:32)
[2025-04-15] MEDS ORDERED: EXPAREL 133 MG/10 ML VIAL IJ ONE (07:32)
[2025-04-15 07:35] LABS: Calcium 9.2 mg/dL (8.4-10.2); Carbon Dioxide 28.0 mmol/L (22-30); Creatinine 1 0.94 mg/dL (0.52-1.04); EST GLOMERULAR FILTRATION RATE 62.1 ML/MIN; Glucose 102.0 mg/dL (74-106); Potassium 3.1 mmol/L (3.5-5.1); SGOT/AST 27.0 U/L (14-36); SGPT/ALT 15.0 U/L (0-35); Total Protein 7.5 g/dL (6.3-8.2)
[2025-04-15] MEDS ORDERED: ROCURONIUM BROMIDE IV ONE (07:36)
[2025-04-15] MEDS ORDERED: propofoL IV ONE (07:36)
[2025-04-15] MEDS ORDERED: Xylocaine-Mpf 2% 5 Ml Vial ONE (07:36)
[2025-04-15] MEDS ORDERED: Versed 2 MG/2 ML Injection ONE (07:36)
[2025-04-15] MEDS ORDERED: SUBLIMAZE 100 MCG/2 ML ONE (07:36)
[2025-04-15] MEDS ORDERED: PHENYLEPHRINE HCL ONE (08:28)
[2025-04-15] MEDS ORDERED: Zofran 4 MG/2 ML VIAL ONE (08:44)
[2025-04-15] MEDS ORDERED: ROBINUL ONE (08:57)
[2025-04-15] MEDS ORDERED: BRIDION 200MG/2ML IV ONE (09:49)
[2025-04-15] MEDS ORDERED: Ephedrine Sulfate 50 MG/ML ONE (09:49)
--- NOTE | 2025-04-15 10:49 | XRAY ---
Indication: Right foot surgery. Intraoperative fluoroscopy provided for 3 minute 41 seconds. 23 digital spot images submitted for interpretation ultimately demonstrates 1st tarsometatarsal arthrodesis with grossly intact hardware. Images 20/21 demonstrates metallic localizer tip medial to 1st MTP. Correlate with intraoperative findings/report.
[2025-04-15 11:48] VITALS: O2SAT 95
[2025-04-15] MEDS: Klor Con PO ONE (11:49)
[2025-04-15 11:59] VITALS: BP 109/69; PULSE 73; TEMP 97.3
--- NOTE | 2025-04-15 17:06 | XRAY ---
3 minutes and 41 seconds of fluoroscopy were used in surgery for a right foot lapidus arthrodesis with a silver procedure and repair of the medial collateral ligament.
--- NOTE | 2025-04-18 09:57 | OP ---
SURGERY DATE/TIME: 04/15/2025 [id number] PREOPERATIVE DIAGNOSES: 1) Right foot hallux valgus. 2) Metatarsal deformity. 3) Right foot pain. 4) Medial collateral ligament tear 1st metatarsophalangeal joint. POSTOPERATIVE DIAGNOSES: 1) Right foot hallux valgus. 2) Metatarsal deformity. 3) Right foot pain. 4) Medial collateral ligament tear 1st metatarsophalangeal joint. PROCEDURES: 1) Lapidus via Treace Lapiplasty. 2) Silver osteotomy with lateral release. 3) Reconstruction of medial collateral ligament right 1st metatarsophalangeal joint. SURGEON: Antonino Keene DPM. STEEL ERECTING PUSHER: None. ANESTHESIA: General plus a preoperative popliteal and saphenous block. HEMOSTASIS: Thigh tourniquet set to 300 mmHg for a total of 75 total tourniquet minutes. INJECTABLES: See Anesthesia report. MATERIALS: A Treace Lapiplasty one 4-prong SpeedPlate, one 2-prong SpeedPlate, and a 1.45 JuggerKnot for the medial collateral ligament repair. INDICATIONS: The patient is a very pleasant 80-year-old female who is familiar to my service. She presented with complaints of a flat foot as well as a hallux valgus. The patient had a significant bunion along with her flat foot, IM 1-2 angle was measured to be 15 degrees. She also did have small arthritic portion of the 1st metatarsophalangeal joint at the periphery, however, she did have decent range of motion and no pain with that range of motion in a functional or a nonweightbearing examination. From that standpoint, discussion was held in regard to options. We decided on Lapiplasty as her instability was the biggest issue of the 1st tarsometatarsal joint and she did have a rather large intermetatarsal angle between the 1st and 2nd metatarsals with minimal arthritis noted to the 1st MPJ. From that standpoint, all risks, complications, and benefits of surgical intervention were discussed with the patient at length. The patient has been advised that we are delaying the surgery by approximately 6 weeks for her to reduce her cigarette smoking. A serum nicotine was obtained and another serum nicotine will be obtained at first followup in order to better assess chance of nonunion although she has been consented as this is a potential risk. All other risks that were discussed were including, but not limited to, infection, hematoma, seroma, possibility of delayed wound healing, non-wound healing, and possible failure of surgical intervention, and possible need for surgical intervention at a later date. No guarantees were provided as to the outcome of surgical intervention at this time. Plenty of time was allowed for the patient to ask questions, which were answered to her apparent satisfaction. It is at this time we decided to proceed. DESCRIPTION OF PROCEDURE AND FINDINGS: The patient was brought into the PACU prior to the procedure and provided a popliteal and saphenous block. See Anesthesia report for details. The patient was then brought into the operative suite and placed on the operative table in the supine position. General anesthesia was administered until the patient was adequately sedated. Once the patient was sedated, a well-padded thigh tourniquet was applied and the tourniquet was set to 300 mmHg. The right lower extremity was prepped and draped in the typical sterile fashion and lowered onto the surgical field. At this time, attention was directed to the right foot where an Esmarch was utilized to exsanguinate the foot and leg and the tourniquet was inflated to 300 mmHg. A linear incision was made just medial to the extensor hallucis longus along the 1st tarsometatarsal joint fairly midline with the incision. This was deepened relatively quickly and the joint was loosened. A 41 mm sagittal saw blade was then utilized to open up the joint and remove any capsular attachments at this time. Attention was then directed to under fluoroscopic guidance the 1st metatarsal head laterally where a lateral release was performed under direct visualization utilizing a 15-blade. Following this, the set guide was utilized for rotation of the 1st metatarsal in the frontal plane and then pins were placed for the cut guides based on the appropriate orientation. Orientation was set fairly perpendicular to the base of the 1st metatarsal, taking a slightly larger portion of the lateral base of the medial cuneiform, exposing a majority of the chondral bone. Once this was performed, position was checked and deemed to be adequate. A small plantar cut was made in order to plantarflex the 1st metatarsal in order to get a little bit of compression at that aspect as well as plantarflexing the 1st ray while correcting the intermetatarsal angle. All of this was achieved, getting excellent compression between the osteotomy fragments. Once this was checked and deemed to be adequate, this was distracted once again and the site was then flushed with copious amounts of sterile saline and then fenestrated utilizing a 2 mm drill bit. Once this was performed, this was compressed and position was checked once again utilizing a footplate, gaining small increase in the arch height with plantarflexing the 1st ray but, more importantly, correcting the intermetatarsal angle as well as frontal plane rotation. From that standpoint, this was deemed to be adequate. Capsular repair happened utilizing 4-0 Monocryl and 3-0 nylon was utilized in a horizontal mattress-type fashion to coapt the skin edges. Attention was directed to the 1st metatarsal where there was some atavistic and arthritic change to the medial aspect of the 1st metatarsal. A dorsal medial incision was made and deepened along the plane and then dissecting the capsule to reflect the bone at the level of the 1st metatarsophalangeal joint. The 1st metatarsal was resected utilizing an 18 mm sagittal saw, taking any overhang and any atavistic changes to the 1st metatarsal at this level. Once this was performed, the lateral release was confirmed to be adequate and loosened and then the capsule was identified to be lax and torn centrally. This was cleaned up, cleaning up the capsular edges and then utilizing a 15-blade in a linear orientation in order to easier plicate the ends of the capsule. A 1.45 JuggerKnot was placed into the proximal phalanx base and then utilized to internal brace this to the 1st metatarsal head and the capsule. Once this was achieved, the transverse plane was corrected parallel with the 2nd toe, which was the stated goal of the procedure, as well as no sagittal plane deformity. From that standpoint, the remaining incision was then cleansed with copious amounts of sterile saline. 4-0 Monocryl was then utilized to coapt the subcutaneous skin edges in a simple interrupted buried-type fashion and then horizontal mattress for the skin. A dressing consisting of Betadine, Adaptic, 4 x 4, Kerlix, ABD, and Kar was applied to the patient's right lower extremity. The patient was then provided a cam boot and then reversed from anesthesia and returned to the postoperative anesthesia care unit with vital signs stable and vascular status intact. The patient handled the anesthesia as well as the procedure without significant complication. Postoperative orders as indicated in the patient's discharge chart.
== END 2025-04-15 11:58 | disposition home or self-care (01) ==
LOC: SDC 06:15
PROVIDERS: ATTEND Podiatrist Foot & Ankle Surgery
DX: M20.31 Hallux varus (acquired), right foot (principal); M21.071 Valgus deformity, not elsewhere classified, right ankle; M79.671 Pain in right foot; S93.621A Sprain of tarsometatarsal ligament of right foot, initial encounter; I10 Essential (primary) hypertension; E11.9 Type 2 diabetes mellitus without complications
CPT/HCPCS: 01470; 01480; 28272; 28296; 28297; 36415; 64447; 64450; 73630; 76000; 76942; 80053; 82947; 85027; 93005; 99100; C1713